=== PATIENT | male | born 1985 | race Native Hawaiian/Other Pacific Islander ===

== ENCOUNTER → 2021-04-04 | Outpatient (CLI) | payer OTHER ==
--- NOTE | 2021-04-04 13:27 | US ---
EXAMINATION TYPE: US venous doppler duplex LE RT DATE OF EXAM: 04/04/2021 1:05 PM COMPARISON: NONE CLINICAL HISTORY: RLE Localized edema R60.0. no known injury but has has swelling of calf and pain wh ile walking, no h/o dvt SIDE PERFORMED: Right TECHNIQUE: The lower extremity deep venous system is examined utilizing real time linear array sonog manuel with graded compression, doppler sonography and color-flow sonography. VESSELS IMAGED: Common Femoral Vein Deep Femoral Vein Greater Saphenous Vein * Femoral Vein Popliteal Vein Proximal Calf Veins (* superficial vessels) Right Leg: Negative for DVT localized fluid collection seen at area of concern in lower right calf , possibly related to some kind of tear or strain *preliminary results relayed to Kristel at office for negative DVT, and fluid collection seen. IMPRESSION: No sonographic evidence for deep vein thrombosis of the right lower extremity. 5.2 cm elongated colle ction in the right calf at the patient's area of concern is nonspecific and may be due to strain or s prain or other etiology.
== END | disposition home or self-care (01) ==
LOC: RADUSWWP 12:38
PROVIDERS: ATTEND Family Medicine
DX: M79.661 Pain in right lower leg (principal); R22.41 Localized swelling, mass and lump, right lower limb

== ENCOUNTER → 2021-07-24 | Outpatient (CLI) | payer OTHER | END | disposition home or self-care (01) | LOC: LABMAIN 10:55 | PROVIDERS: ATTEND Physician Assistant | DX: Z20.822 Contact with and (suspected) exposure to COVID-19 (principal) | CPT/HCPCS: 87635 ==

== ENCOUNTER → 2021-10-19 | Outpatient (CLI) | payer OTHER | END | disposition home or self-care (01) | LOC: LABWHC1 15:48 | PROVIDERS: ATTEND Physician Assistant | DX: Z20.822 Contact with and (suspected) exposure to COVID-19 (principal) | CPT/HCPCS: 87635 ==